=== PATIENT | female | born 1955 | race Caucasian/White ===

== ENCOUNTER 2019-05-18 10:30 | Emergency (ER) | payer OTHER ==
[~2019-05-18] VITALS: Ht 170.2 cm; Wt 100.0 kg
[2019-05-18 10:39] VITALS: Ht 170.2 cm; Wt 100.0 kg
[2019-05-18] MEDS ORDERED: MUPIROCIN22 GM TOPICAL (11:09)
[2019-05-18 11:28] VITALS: BP 121/74
== END 2019-05-18 11:29 | disposition home or self-care (01) ==
LOC: D.ER 10:30
DX: S01.112A Laceration without foreign body of left eyelid and periocular area, initial encounter (principal); W22.8XXA Striking against or struck by other objects, initial encounter; Y93.9 Activity, unspecified; Y92.9 Unspecified place or not applicable